=== PATIENT | male | born 1965 ===

== ENCOUNTER → 2017-12-03 | Outpatient (CLI) | payer OTHER ==
[~2017-12-03] MED LIST: MAXITROL EYE O3.5 GM OP
== END | disposition home or self-care (01) ==
LOC: PPHC 08:36
DX: L71.8 Other rosacea (principal)

== ENCOUNTER 2019-05-19 10:37 | Outpatient (CLI) | payer OTHER | END 2019-05-19 10:40 | disposition home or self-care (01) | LOC: RAD 10:37 | DX: S99.921A Unspecified injury of right foot, initial encounter (principal); M79.671 Pain in right foot ==